=== PATIENT | male | born 1975 ===

== ENCOUNTER 2017-09-21 02:52 | Emergency (ER) | payer SELFPAY ==
[2017-09-21] MEDS ORDERED: Tdap Vaccine 0.5 ml Vial (10-64 yrs) IM ONE ×3 (04:07→06:10)
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
[2017-09-21 05:00] LABS: BASO # 0.1 K/uL (0.0-0.2); BASO % 3.2 % (0.0-2.0); EOS # 0.1 K/uL (0.0-0.7); EOS % 1.5 % (0.0-4.0); HEMOGLOBIN 13.1 g/dL (12.0-18.0); LYMPH # 1.1 K/uL (1.0-4.3); LYMPH % 28.7 % (20.0-40.0); MEAN CELL VOLUME 90.6 fl (80.0-94.0); MEAN CORPUSCULAR HEMOGLOBIN 29.1 pg (27.0-31.0); MEAN CORPUSCULAR HGB CONC 32.2 g/dL (33.0-37.0); MEAN PLATELET VOLUME 7.3 fl (7.2-11.7); MONO # 0.4 K/uL (0.0-0.8); MONO % 10.8 % (0.0-10.0); NEUT # 2.1 K/uL (1.8-7.0); NEUT % 55.8 % (50.0-75.0); NRBC % 0.1 % (0.0-0.0); PLATELET COUNT 227 K/uL (130-400); RBC 4.49 Mil/uL (4.40-5.90); RED CELL DISTRIBUTION WIDTH 15.3 % (11.5-14.5); WHITE BLOOD COUNT 3.8 K/uL (4.8-10.8)
[2017-09-21 05:07] LABS: ALB/GLOB RATIO 1.3 (1.0-2.1); ALBUMIN 4.4 g/dL (3.5-5.0); ALT/SGPT 29 U/L (21-72); AST/SGOT 39 U/L (17-59); BLOOD UREA NITROGEN 7 mg/dl (9-20); CALCIUM 8.9 mg/dL (8.4-10.2); GFR AFRICAN-AMERICAN > 60; GFR NON-AFRICAN AMERICAN > 60
[2017-09-21] MEDS ORDERED: Lidocaine 2% w Epi 1:100,000 Inj IJ ONE (05:53)
[2017-09-21 06:02] LABS: BASOPHIL 2 % (0-2); EOSINOPHIL 1 % (0-7); LYMPHOCYTE 36 % (20-50); MONOCYTE 7 % (0-10); NEUTROPHIL 54 % (42-75); PLATELET ESTIMATE NORMAL (NORMAL); TOTAL CELLS COUNTED 100
--- NOTE | 2017-09-21 06:58 | ED PDOC ---
Procedures - Laceration/Wound Repair Left Eye ( eyebrow) Wound Length (cm): 3 Wound's Depth, Shape: superficial, irregular Wound Explored: clean Irrigated w/ Saline (ccs): 4 Anesthesia: Lidocaine w/ Epi Volume Anesthetic (ccs): 2 Wound Repaired With: Sutures Suture Size/Type: 4:0, nylon Number of Sutures: 1 Layer Closure?: No Wound Complexity: Simple Sterile Dressing Applied?: Yes
--- NOTE | 2017-09-21 07:12 | ED PDOC ---
- Laboratory Results Result Diagrams: 09/21/17 04:54 09/21/17 04:54 - ECG O2 Sat by Pulse Oximetry: 99 (RA) Pulse Ox Interpretation: Normal Medical Decision Making Medical Decision Making: Patient endorsed to provider from Dr. Jaramillo at 0700 pending clinical sobriety. ----- Documented by Cindy Borden acting as a scribe for Amilcar Diaz MD. All medical record entries made by the Scribe were at my direction and personally dictated by me. I have reviewed the chart and agree that the record accurately reflects my personal performance of the history, physical exam, medical decision making, and the department course for this patient. I have also personally directed, reviewed, and agree with the discharge instructions and disposition. Disposition - Clinical Impression Clinical Impression: Facial laceration, Alcohol intoxication - Disposition Condition: STABLE Additional Instructions: follow up in 5 days for suture removal. return to the ED with any worsening or concerning symptoms Prescriptions: Cephalexin [Keflex] 500 mg PO BID #14 capsule Instructions: Laceration Repair With Stitches (DC), Alcohol Poisoning (DC) Forms: [email or web address] (Guamanian) Print Language: IVORIAN
[2017-09-21 08:34] VITALS: BP 108/69; PULSE 80; RESP 18; TEMP 97.7
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
--- NOTE | 2017-09-21 09:00 | CT ---
Date of service: 09/21/2017 PROCEDURE: CT MAXILLOFACIAL BONES WITHOUT CONTRAST HISTORY: facial swelling COMPARISON: None available. TECHNIQUE: Contiguous axial CT images of the maxillofacial bones were obtained. Coronal and sagittal reformats were generated. Radiation dose: Total exam DLP = mGy-cm. This CT exam was performed using one or more of the following dose reduction techniques: Automated exposure control, adjustment of the mA and/or kV according to patient size, and/or use of iterative reconstruction technique. FINDINGS: NASAL BONES: Unremarkable. ORBITS: Unremarkable. PARANASAL SINUSES/ MASTOIDS: Right maxillary sinus opacification. . MAXILLA: Unremarkable. MANDIBLE/ TEMPOROMANDIBULAR JOINTS: Unremarkable. SKULL BASE: Unremarkable. TEMPORAL BONES: Middle ears and mastoid grossly unremarkable. OTHER FINDINGS: None. IMPRESSION: No fracture.
[2017-09-22 02:30] VITALS: O2SAT 9
== END 2017-09-21 08:30 | disposition home or self-care (01) ==
LOC: H.ER 02:52
DX: F10.129 Alcohol abuse with intoxication, unspecified (principal); S01.81XA Laceration without foreign body of other part of head, initial encounter; W19.XXXA Unspecified fall, initial encounter; Y92.89 Other specified places as the place of occurrence of the external cause
CPT/HCPCS: 12011; 70450; 70486; 80053; 85025; 90471; 90715; 99285; G0480

== ENCOUNTER 2017-09-29 14:16 | Emergency (ER) | payer OTHER ==
[2017-09-29 14:33] VITALS: BP 155/97; PULSE 90; RESP 18; TEMP 97.9; O2SAT 99
[2017-09-29] MEDS ORDERED: Bacitracin OINT 15GM TOP STA (14:53)
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
[2017-09-29] MEDS ORDERED: Bacitracin 500 Units/gm Oint Foilpak UD ONE (15:01)
== END 2017-09-29 15:15 | disposition home or self-care (01) ==
LOC: H.ER 14:16
DX: Z48.02 Encounter for removal of sutures (principal)

== ENCOUNTER 2017-11-17 21:58 | Emergency (ER) | payer OTHER ==
[2017-11-17 22:15] VITALS: TEMP 98.2
--- NOTE | 2017-11-17 22:46 | ED PDOC ---
HPI: Psych/Substance Abuse Time Seen by Provider: 11/17/17 22:20 Chief Complaint (Nursing): Medical Clearance Chief Complaint (Provider): alcohol intoxication Involuntary Hold By: Local Law Enforcement Additional Complaint(s): 41yo man with no chronic medical conditions brought in by [facility] for medical and psychiatric clearance for incarceration. Evaluation requested due to patient's report of drinking alcohol . Pt offers no complaints. PMD None Past Medical History Reviewed: Historical Data, Nursing Documentation, Vital Signs Vital Signs: Last Vital Signs Temp 98.2 F 11/17/17 22:10 Pulse 99 H 11/17/17 22:10 Resp 20 11/17/17 22:10 BP 153/90 H 11/17/17 22:10 Pulse Ox 100 11/17/17 22:10 - Medical History PMH: No Chronic Diseases - Surgical History Surgical History: No Surg Hx - Family History Family History: States: Unknown Family Hx - Social History Current smoker - smoking cessation education provided: Yes Alcohol: Social Drugs: Denies - Immunization History Hx Tetanus Toxoid Vaccination: Yes - Home Medications Home Medications: Ambulatory Orders Medication Instructions Recorded Cephalexin [Keflex] 500 mg PO BID #14 capsule 09/21/17 RX: Bacitracin OINT 1 applic TOP BID #1 tube 09/29/17 - Allergies Allergies/Adverse Reactions: Allergies Allergy/AdvReac Type Severity Reaction Status Date / Time No Known Allergies Allergy Verified 11/17/17 22:10 Review of Systems ROS Statement: Except As Marked, All Systems Reviewed And Found Negative Physical Exam - Reviewed Nursing Documentation Reviewed: Yes Vital Signs Reviewed: Yes - Physical Exam Appears: Positive for: No Acute Distress Head Exam: Positive for: ATRAUMATIC, NORMOCEPHALIC Skin: Positive for: Dry Eye Exam: Positive for: EOMI, PERRL Neck: Positive for: Painless ROM, Supple Cardiovascular/Chest: Positive for: Regular Rate, Rhythm. Negative for: Murmur Respiratory: Positive for: Normal Breath Sounds. Negative for: Respiratory Distress Gastrointestinal/Abdominal: Positive for: Soft. Negative for: Tenderness Back: Negative for: L CVA Tenderness, R CVA Tenderness Extremity: Positive for: Normal ROM. Negative for: Deformity Lymphatic: Negative for: Adenopathy Neurologic/Psych: Positive for: Alert, Oriented. Negative for: Motor/Sensory Deficits - ECG O2 Sat by Pulse Oximetry: 100 - Progress ED Course And Treament: Evaluated by CW and cleared for dc. Disposition - Clinical Impression Clinical Impression: Alcohol intoxication, Adjustment disorder Counseled Patient/Family Regarding: Studies Performed, Diagnosis - Disposition Disposition: Discharged/Transfer to Law Enforcement Disposition Time: 22:44 Condition: GOOD Additional Instructions: MEDICALLY AND PSYCHIATRICALLY STABLE FOR INCARCERATION Instructions: Alcohol Use - When Is Drinking a Problem? Print Language: NIUEAN
[2017-11-18 00:17] VITALS: BP 141/81; PULSE 89; RESP 16
[2017-11-18 15:43] VITALS: O2SAT 100
== END 2017-11-18 00:33 ==
LOC: H.ER 21:58
DX: F10.129 Alcohol abuse with intoxication, unspecified (principal); F43.20 Adjustment disorder, unspecified